=== PATIENT | female | born 1990 | race Caucasian/White ===

== ENCOUNTER 2017-03-17 17:34 | Emergency (ER) | payer MEDICAID ==
[~2017-03-17] VITALS: Ht 157.5 cm; Wt 80.0 kg
[~2017-03-17 17:34] MED LIST: PNV1TABL4 PO
[2017-03-17 17:41] VITALS: Ht 157.5 cm; Wt 80.0 kg
--- NOTE | 2017-03-17 19:23 | ERD ---
ER Documentation Chief Complaint Date/Time DATE: 03/17/17 TIME: 19:20 Chief Complaint HAS IUD, PREG TEST +, SEND FOR US HPI 26-year-old female who is approximately 6 weeks is sent here by her OB for ultrasound. Patient stated that she is with an copper IUD. IUD was placed about a month ago. Patient reports slight suprapubic pain, denies vaginal bleeding. Denies fever or chills. Denies dysuria. Patient is , LMP 02/03/2017. ROS All systems reviewed and are negative except as per history of present illness. 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 03/17/17 Reported Medications Pnv Cmb#95/Ferrous Fumarate/Fa ( MULTIVITAMINS TABLET) 1 Each Tablet, 1 EACH PO DAILY 05/31/14 Allergies Allergies: Coded Allergies: No Known Drug Allergy (Verified Allergy, Unknown, 03/24/16) PMhx/Soc History of Surgery: No Anesthesia Reaction: No Hx Neurological Disorder: No Hx Respiratory Disorders: No Hx Cardiac Disorders: No Hx Psychiatric Problems: No Hx Miscellaneous Medical Probl: No Hx Alcohol Use: No Hx Substance Use: No Hx Tobacco Use: No Physical Exam Vitals Vital Signs Date Time Temp Pulse Resp B/P Pulse Ox O2 Delivery O2 Flow Rate FiO2 03/17/17 17:41 98.1 84 18 111/67 99 Physical Exam General: Well-developed, well-nourished, conscious and coherent, in no distress Skin: Warm and dry without rash, good texture and turgor Head: Normocephalic without evidence of trauma Eyes: Sclera and conjunctivae normal; pupils equal, round, and reactive to light; extraocular movements are intact Neck: Supple without meningismus or adenopathy. Carotids are equal. Trachea midline. No bruits or JVD Chest: Normal AP diameter. Good expansion without retractions. Nontender. Lungs are clear to auscultate bilaterally with good tidal volume Heart: Regular rate and rhythm. No murmur, rub, or gallops heard Abdomen: Soft and nontender without masses, guarding, or rebound. Bowel sounds are active. No hepatosplenomegaly Back: Without spinal or CVA tenderness Pelvis: Mild suprapubic tenderness Extremities: Full range of motion. Good strength bilaterally. No clubbing, cyanosis, or edema. Peripheral pulses are intact. Sensation intact Neuro: Alert and oriented 4, GCS 15. Cranial nerves grossly intact. Motor and sensory exams nonfocal. Moves all extremities. Speech clear. Gait normal Procedures/MDM Well-appearing 26-year-old female sent here by her OB. Patient is with IUD in place. Her OB wants her to be evaluated to rule out ectopic . OB ultrasound was obtained. Preliminary results indicate that no adnexal masses are seen bilaterally. IUD is seen in the cervix. A small sac is seen in the uterus without pole. If that is the gestational sac, it corresponds to approximately 4 weeks gestational age. Patient is signed out to LILLIAM Son pending official ultrasound report by radiologist. I will prescribe Tylenol for her for pain. Patient will be advised to follow-up with her OB, Dr. Ernie Hernandez in 2-3 days. KAILASH CABRAL NP Mar 17, 2017 19:22
[2017-03-17] MEDS ORDERED: ACET500C5 PO (19:44)
--- NOTE | 2017-03-17 21:09 | RADRPT ---
PROCEDURE: US Pelvis. CLINICAL INDICATION: Pelvic pain. with intrauterine device. Possible ectopic TECHNIQUE: Multiple sonographic images of the pelvis were obtained utilizing a transabdominal and endovaginal technique. The images were reviewed on a PACS workstation. COMPARISON: No relevant exams available FINDINGS: Uterus: Normal in size, contour and echogenicity with no evidence for myometrial masses. Size is est imated at 9.6 x 5.8 x 5 cm. Cervix: An intrauterine device is eccentrically located within the endocervical canal. No masses a re demonstrated Endometrium: Small anechoic structure believed to reflect a gestational sac measured at 3.1 mm. No pole or yolk sac is visible. Right ovary / adnexa: Normal in size estimated at 4.2 x 3.2 x 3.1 cm. No evidence for masses, norm al blood flow on Doppler interrogation. Within the ovary is a hemorrhagic likely corpus luteum cyst of approximately 2.1 x 1.7 cm. A second simple follicle of approximate 1.2 cm is present. Left ovary/adnexa: Normal in size estimated at 3.4 x 2.5 x 2.1 cm. No evidence for solid masses, no rmal blood flow on Doppler interrogation. Cul-de-sac: Small amount of free fluid. RPTAT:HJJR IMPRESSION: 1. Ovoid anechoic structure within the fundal endometrium is believed to reflect a gestational sac that correlates with an age of 4 weeks 6 days however, as no pole is visible and viability is therefore uncertain, correlation with serial beta HCG and follow-up ultrasound is suggested. 2. Intrauterine device eccentrically located within the lower uterine segment and endocervical tra l. 3. Right ovarian hemorrhagic corpus luteum cyst of 2.1 cm with a second simple 1.2 cm right ovarian follicle. 4. Small amount of free fluid in the cul-de-sac possibly physiologic. Physician Vannessa Date Time Electronically viewed and signed by Physician Vannessa on 03/17/2017 21:09 /
[2017-03-17 22:32] LABS: ADD SCAN DIFF NO
[2017-03-17 22:34] LABS: BASOPHILS % 0.4 % (0.0-2.0); EOSINOPHILS # 0.1 10^3/ul (0.0-0.5); EOSINOPHILS % 0.6 % (0.0-7.0); HEMATOCRIT 46.4 % (37.0-47.0); HEMOGLOBIN 14.9 g/dl (12.0-16.0); LYMPHOCYTES % 31.1 % (15.0-51.0); MEAN CORPUSCULAR HGB CONC 32.1 g/dl (32.0-37.0); MEAN CORPUSCULAR VOLUME 93.4 fl (82.0-101.0); MEAN PLATELET VOLUME 9.4 fl (7.4-10.4); MONOCYTE # 0.5 10^3/ul (0.3-0.9); NEUTROPHILS % 62.5 % (39.0-77.0); PLATELET COUNT 343 10^3/UL (140-415); RED BLOOD COUNT 4.97 10^6/ul (4.20-5.40); RED CELL DISTRIBUTION WIDTH 13.3 % (11.5-14.5); WHITE BLOOD COUNT 9.6 10^3/ul (4.8-10.8)
[2017-03-17 22:46] LABS: ADD UMIC YES; UR ASCORBIC ACID NEGATIVE (NEGATIVE); UR BILIRUBIN (Dip) NEGATIVE (NEGATIVE); UR BLOOD (Dip) 1+ mg/dL (NEGATIVE); UR CLARITY SLIGHTLY CLOUDY (CLEAR); UR COLOR YELLOW (YELLOW); UR GLUCOSE (Dip) NEGATIVE (NEGATIVE); UR KETONES (Dip) TRACE mg/dL (NEGATIVE); UR LEUKOCYTE ESTERASE (Dip) TRACE Leu/ul (NEGATIVE); UR MUCUS FEW /HPF (NONE SEEN); UR NITRITE (Dip) NEGATIVE (NEGATIVE); UR RBC 1 /HPF (0-5); UR SPECIFIC GRAVITY (Dip) 1.028 (1.003-1.030); UR SQUAMOUS EPITHELIAL CELL FEW /HPF (FEW); UR TOTAL PROTEIN (Dip) NEGATIVE (NEGATIVE); UR UROBILINOGEN (Dip) 1+ mg/dL (NEGATIVE)
--- NOTE | 2017-03-17 23:58 | EN ---
Date/Time of Note Date/Time of Note DATE: 03/17/17 TIME: 23:56 ER Progress Note I reviewed patient's ultrasound results with my supervising physician Dr. Carbone. Dr. Carbone suggested to obtain quantitative hCG. Patient's quantitative hCG is below 1500, suspicion for ectopic is low. Patient denied any pain throughout the rest of the ER course and appeared well upon discharge. Patient has also denied any vaginal bleeding. Patient is to follow-up with her OB within 2 days return to ER sooner if symptoms worsen. My medical decision making was shared with the patient she understands and agrees with plan. COLT MORRISSEY Mar 17, 2017 23:57
[2017-03-18 00:05] VITALS: BP 115/75; PULSE 81; RESP 18; TEMP 98.3
== END 2017-03-18 00:07 | disposition home or self-care (01) ==
LOC: FTE 17:34
DX: O26.891 Other specified pregnancy related conditions, first trimester (principal); R10.2 Pelvic and perineal pain; R10.30 Lower abdominal pain, unspecified; Z3A.01 Less than 8 weeks gestation of pregnancy
CPT/HCPCS: 36415; 76801; 76817; 81001; 84702; 85025; 86900; 86901; Z7502